=== PATIENT | male | born 1940 | race Caucasian/White ===

== ENCOUNTER 2019-04-26 08:56 | Day surgery (SDC) | payer MEDICARE, OTHER ==
[~2019-04-26 08:56] MED LIST: CEFAZOLIN SODIUM IN 0.9 % NACL 2 GM/100 ML BAG IV ONE
[2019-04-26] MEDS ORDERED: DEXAMETHASONE 4 MG/ML VIAL IVP ONE (08:57)
[2019-04-26] MEDS ORDERED: MIDAZOLAM 2 MG/2 ML VIAL IVP ONE (08:57)
[2019-04-26] MEDS ORDERED: PROPOFOL 200 MG/20 ML VIAL IVP ONE (08:57)
[2019-04-26] MEDS ORDERED: fentaNYL 100 MCG/2 ML VIAL IVP ONE (08:57)
[2019-04-26] MEDS ORDERED: KETOROLAC 30 MG/ML VIAL IVP ONE (08:57)
[2019-04-26] MEDS ORDERED: ONDANSETRON 4 MG/2 ML VIAL IVP ONE (08:57)
[2019-04-26] MEDS ORDERED: LACTATED RINGERS 1,000 ML IV ONE (09:27)
--- NOTE | 2019-04-26 09:30 | ANESTHESIA ---
Pre-Anesthesia VS, & Labs - Diagnosis left inguinal hernia - Procedure left inguinal hernia repair Vital Signs: Temp Pulse Resp BP Pulse Ox 36.8 C 62 18 138/67 H 96 04/26/19 09:06 04/26/19 09:06 04/26/19 09:06 04/26/19 09:06 04/26/19 09:06 Height 6 ft 5 in Weight (kg) 89 kg - NPO >8 hours Home Medications and Allergies Home Medications: Ambulatory Orders Omeprazole 20 mg PO DAILY 04/24/19 Sulfasalazine [Azulfidine] 500 mg PO BID 04/24/19 Omeprazole 20 mg PO DAILY 04/24/19 Sulfasalazine [Azulfidine] 500 mg PO BID 04/24/19 Allergies/Adverse Reactions: Allergies Allergy/AdvReac Type Severity Reaction Status Date / Time No Known Drug Allergies Allergy Verified 04/24/19 11:23 Anes History & Medical History - Anesthetic History Anesthesia Complications: reports: No previous complications Family history of Anesthesia Complications: Denies Family history of Malignant Hyperthermia: Denies - Medical History Cardiovascular: reports: Murmur Pulmonary: reports: None Gastrointestinal: reports: GERD, Colon polyps Urinary: reports: Benign prostate hypertrophy Musculoskeletal: reports: Osteoarthritis Endocrine/Autoimmune: reports: None Skin: reports: None - Surgical History General: Colonoscopy Urologic: Prostatic surgery Orthopedic: Other Exam General: Alert, Oriented x3, Cooperative, No acute distress Dental: Other (caps , implants) Mouth Openin Fingerbreadth Neck Mobility: Normal Mallampati classification: II Thyromental Distance: greater than 6 cm Respiratory: Lungs clear, Normal breath sounds, No respiratory distress, No accessory muscle use Cardiovascular: Normal S1, Normal S2 Plan Anesthesia Type: General Consent for Procedure(s) Verified and Reviewed: Yes Code Status: Attempt Resuscitation ASA classification: 2-Mild systemic disease Is this case an emergency?: No
[2019-04-26] MEDS ORDERED: BUPIVACAINE 0.5% PF 10 ML VIAL SUBQ ONE ×2 (10:19→10:25)
[2019-04-26] MEDS ORDERED: HYDROcod/ACETAM 5/325 MG TABLET PO PRN (11:12)
[2019-04-26] MEDS ORDERED: ONDANSETRON 4 MG/2 ML VIAL IVP PRN (11:12)
[2019-04-26] MEDS ORDERED: HYDROmorphone 0.5 MG/0.5 ML SYRINGE IVP PRN (11:12)
--- NOTE | 2019-04-26 11:19 | OPERATIVE REPORT ---
Operative Report - General Procedure Date: 04/26/19 Planned Procedure: Left inguinal herniorrhaphy Pre-Op Diagnosis: Left inguinal hernia Procedure Performed: Left indirect inguinal herniorrhaphy with mesh and excision cord lipoma Post Op Diagnosis: Left indirect inguinal hernia and cord lipoma - Procedure Note Primary Surgeon: Gt Bergeron MD Anesthesia Provider: Faustino Acevedo CRNA Anesthesia Technique: General ET tube, Local (30 mL of half percent Marcaine) IV Fluids (mL): 500 Estimated Blood Loss (mL): 5 Drain/Tube Type: Other (None) Complications: None - Other Other Information/Narrative: OPERATIVE DESCRIPTION/REPORT: After verbal and written informed consent was obtained detailing the risks of infection, bleeding requiring transfusion with its risks, nerve injury, and d eath, and after I met with the patient confirming the surgery and the site of the surgery and after initialing the site of the surgery with a surgical marker, the patient was brought to the operative suite and placed supine on the operating table. Great care was taken to avoid pressure points to prevent pressure necrosis or nerve injury. Monitoring devices were applied along with TEDs and pneumatic compressive stockings (to prevent DVT). The patient received preoperative antibiotics for surgical prophylaxis. Faustino Acevedo CRNA sedated and anesthetized the patient for the entire procedure. The patient was prepped and draped in the usual sterile manner. With the patient draped my initials were clearly visible. A "time in" then confirmed that the patient was identified with 3 identifiers (name, date and medical record number), the history and physical was in the chart, the signed consent confirming the procedure was in the chart, the patient was in the correct position, the aforementioned prophylactic measures were in place or given, we had the correct personnel and equipment to complete the procedure and that anesthesia, surgery and nursing were given an opportunity to express any concerns. With the agreement of everyone in the room, we proceeded with the operation. A standard inguinal incision was made and dissection was carried down to the external oblique aponeurosis using a combination of Metzenbaum scissors and Bovie electrocautery. The external oblique aponeurosis was cleared of overlying adherent tissue, and the external ring was delineated. The external oblique was the incised with a scalpel and this incision was carried out to the external ring using Metzenbaum scissors. Having exposed the inguinal canal, the cord structures were from the canal using blunt dissection, and a Lui drain was placed around the cord structures at the level of the pubic tubercle. This Lui drain was then used to retract the cord structures as needed. Adherent cremasteric muscle was dissected free from the cord using Bovie electrocautery. The cord was then explored using a combination of sharp and blunt dissection, and the sac was found anteromedially to the cord structures. Dissection along the cord structures found a lipoma that was dissected back to the internal ring, ligated with a 3-0 Vicryl, transected, the stump cauterized and allowed to retract back into the abdomen. The sac was dissected free from the cord structures using a combination of blunt dissection and Bovie electrocautery. Once preperitoneal fat was encountered, the dissection stopped and the sac was high ligated with a 2-0 PDS, transected, the stump cauterized and allowed to retract back into the abdominal cavity and a medium Covidien plug (Ref# [id number], Lot# [id number], use date 2023-12-17) inserted into the internal ring. The plug was secured to the internal ring by interrupted 2-0 PDS sutures. The Bard Perfix enlay patch was then placed on the floor of the inguinal canal and secured in place using interrupted 0 PDS sutures to the conjoined tendon superiorly, pubic tubercle medially, and shelving edge inferiorly. By reinforcing the floor with the enlay patch, a new internal ring was thus formed. The Grover drain was removed. The wound was then irrigated using sterile saline, and hemostasis was obtained using Bovie electrocautery. The incision in the external oblique was approximated using a 3-0 Vicryl in a running fashion, thus reforming the external ring. The fascia and skin was then injected with the 1/2% marcaine for tank terminal gauger pain control. The skin incision was approximated with 4-0 Monocryl in a subcuticular fashion. The skin was prepped with benzoin and steristrips were applied. At this point a time out was performed that co nfirmed that all the counts were correct, the procedure that was performed, the blood loss, the IV fluids administered, and the patients condition. A dressing was then applied. Gentle downward traction ensured that the testes were well seated in the scrotum. Having tolerated the procedure well, the patient was taken to short stay in good and stable condition. Dragon disclaimer: This document was created in part using voice recognition technology. Because of the inherent limitations of the system ([employer]'s Dragon Dictate user manual states that the licensee understands that speech recognition is a statistical process and that recognition errors are inherent in the process), occasional same sounding word substitutions and grammatical errors do occur and persist despite proofreading. Please read this document for context.
[2019-04-26] MEDS ORDERED: ACETAMINOPHEN 1,000 MG/100 ML 100 ML IV ONE (11:45)
[2019-04-26] MEDS ORDERED: HYDROcod/ACETAM 5/325 MG TABLET ONE (12:13)
[2019-04-26 13:48] VITALS: BP 114/70
== END 2019-04-26 08:57 | disposition home or self-care (01) ==
LOC: SDS 08:56
PROVIDERS: ATTEND Surgery
PROC: 0VBG0ZZ Excision of Left Spermatic Cord, Open Approach (ICD-10-PCS; 2019-04-26)
PROC: 0YU60JZ Supplement Left Inguinal Region with Synthetic Substitute, Open Approach (ICD-10-PCS; principal; 2019-04-26 10:30)
DX: K40.90 Unilateral inguinal hernia, without obstruction or gangrene, not specified as recurrent (principal); K21.9 Gastro-esophageal reflux disease without esophagitis; N40.0 Benign prostatic hyperplasia without lower urinary tract symptoms; R01.1 Cardiac murmur, unspecified; R73.9 Hyperglycemia, unspecified; M19.90 Unspecified osteoarthritis, unspecified site; K57.90 Diverticulosis of intestine, part unspecified, without perforation or abscess without bleeding; Z86.010 Personal history of colon polyps; Z85.51 Personal history of malignant neoplasm of bladder
CPT/HCPCS: 49505; A9270; C1781; J0131; J0690; J7120

== ENCOUNTER 2022-05-18 15:43 | Outpatient (CLI) | payer MEDICARE, OTHER ==
[2022-05-18 16:33] LABS: BASOPHILS % (AUTO) 0.6 %; EOSINOPHILS # (AUTO) 0.3 10^3/uL (0.0-0.7); EOSINOPHILS % (AUTO) 5.2 %; HCT - HEMATOCRIT 39.6 % (42.0-52.0); HGB - HEMOGLOBIN 13.2 g/dL (14.0-18.0); LYMPHOCYTES # (AUTO) 1.5 10^3/uL (1.5-3.5); LYMPHOCYTES % (AUTO) 28.9 %; MEAN CORPUSCULAR HGB CONC 33.3 g/dL (32.0-36.0); MEAN PLATELET VOLUME 10.3 fL (7.4-11.4); MONOCYTES # (AUTO) 0.8 10^3/uL (0.0-1.0); MONOCYTES % (AUTO) 16.5 %; NEUTROPHILS # (AUTO) 2.4 10^3/uL (1.5-6.6); NEUTROPHILS % (AUTO) 48.4 %; PLT - PLATELET COUNT 179 10^3/uL (130-450)
[2022-05-18 16:50] LABS: ALBUMIN/GLOBULIN RATIO 1.5 (1.0-2.2); ALKALINE PHOSPHATASE 42 IU/L (42-121); ALT ALANINE AMINOTRANSFERASE 14 IU/L (10-60); AST ASPARTATE AMINOTRANSFERASE 18 IU/L (10-42); BILIRUBIN,TOTAL 0.5 mg/dL (0.2-1.0); BUN - BLOOD UREA NITROGEN 22 mg/dL (6-20); CALCIUM 9.2 mg/dL (8.5-10.3); CARBON DIOXIDE - CO2 28 mmol/L (21-32); CHLORIDE 103 mmol/L (101-111); CREATININE 0.7 mg/dL (0.6-1.2); GFR - MDRD 108 (>89); GLUCOSE 98 mg/dL (70-100); POTASSIUM 3.9 mmol/L (3.5-5.0); SODIUM 138 mmol/L (135-145); TOTAL PROTEIN 6.7 g/dL (6.7-8.2)
[2022-05-18 16:52] LABS: CRP - C-REACTIVE PROTEIN < 1.0 mg/dL (0-1.0)
[2022-05-18 16:58] LABS: THYROID STIMULATING HORMONE 3.2 uIU/mL (0.34-5.60)
== END 2022-05-18 23:59 | disposition home or self-care (01) ==
LOC: LAB.R 15:43
PROVIDERS: ATTEND Internal Medicine
DX: M06.9 Rheumatoid arthritis, unspecified (principal); R61 Generalized hyperhidrosis; R23.2 Flushing; Z79.899 Other long term (current) drug therapy
CPT/HCPCS: 80053; 84403; 84443; 85025; 85651; 86140

== ENCOUNTER 2022-06-14 17:13 | Outpatient (CLI) | payer MEDICARE, OTHER ==
--- NOTE | 2022-06-14 17:53 | XRAY Report ---
PROCEDURE: Chest 2 View X-Ray INDICATIONS: WHEEZING TECHNIQUE: 2 view(s) of the chest. COMPARISON: None. FINDINGS: Surgical changes and devices: None. Lungs and pleura: No pleural effusions or pneumothorax. Lungs are mildly hyperexpanded and clear. Lucencies under the left hemidiaphragm most likely represent bowel gas within the colon. Mediastinum: Mediastinal contours are normal. Heart size is normal. Bones and chest wall: No suspicious bony abnormalities. Soft tissues appear unremarkable. Mild deg enerative changes are seen in the spine. IMPRESSION: No acute cardiopulmonary abnormality. Hyperexpanded lungs can be seen in the setting of COPD. Reviewed by: Jayden Mejia MD on 06/14/2022 5:52 PM PDT Approved by: Jayden Mejia MD on 06/14/2022 5:52 PM PDT Station ID: [id number]
== END 2022-06-14 17:14 | disposition home or self-care (01) ==
LOC: DI 17:13
PROVIDERS: ATTEND Internal Medicine
DX: R07.9 Chest pain, unspecified (principal); R06.2 Wheezing

== ENCOUNTER 2023-09-01 14:54 | Emergency (ER) | payer MEDICARE, OTHER ==
[2023-09-01 15:07] VITALS: BP 152/89; O2SAT 97
[2023-09-01] MEDS ORDERED: SODIUM CHLORIDE 0.9% 500 ML IV STA (15:29)
--- NOTE | 2023-09-01 15:30 | ED Physician Documentation ---
PD HPI FOCAL NEURO - Stated complaint Stated Complaint: FUZZY HEAD - Chief complaint Chief Complaint: Neuro - History obtained from History obtained from: Patient - Additional information Additional information: Tera Luo is an 82-year-old gentleman with what sounds like known and worsening aortic stenosis. He had an echo earlier this month and is being scheduled for an angiogram in preparation for either an open or TAVR approach valve replacement. Every morning he feels orthostatic and today that sensation has lasted longer than usual and is persistent. He did work a little heavier yesterday than usual because there was a tree down across his driveway and he had to get it out of the driveway so he could get into his house. He has some pedal edema but it is no different than usual. He just feels fuzzy and his thinking is slow. He denies chest pain. 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 PD PAST MEDICAL HISTORY - Past Medical History Past Medical History: Yes Cardiovascular: Murmur Respiratory: None Endocrine/Autoimmune: None GI: GERD, Colon polyps : Benign prostate hypertrophy HEENT: Chronic vision loss Psych: Anxiety Musculoskeletal: Osteoarthritis Derm: None - Past Surgical History Past Surgical History: Yes General: Colonoscopy Ortho: Other - Present Medications Home Medications: Ambulatory Orders Medication Instructions Recorded Confirmed Omeprazole 20 mg PO DAILY 04/24/19 09/01/23 Sulfasalazine [Azulfidine] 500 mg PO BID 04/24/19 09/01/23 Albuterol Sulf [Ventolin Hfa 1 puffs INH PRN PRN 09/01/23 09/01/23 Inhaler] Atorvastatin [Lipitor] 20 mg PO QPM 09/01/23 09/01/23 Rivaroxaban [Xarelto] 20 mg PO DAILY 09/01/23 09/01/23 - Allergies Allergies/Adverse Reactions: Allergies Allergy/AdvReac Type Severity Reaction Status Date / Time potato AdvReac Cramps Verified 04/26/19 09:27 - Social History Does the pt smoke?: No Smoking Status: Never smoker PD ED PE NORMAL - Vitals Vital signs reviewed: Yes - General General: Alert and oriented X 3, No acute distress - HEENT HEENT: PERRL, Dentition benign - Neck Neck: Supple, no meningeal sign, No bony TTP - Cardiac Cardiac: RRR - Respiratory Respiratory: No respiratory distress, Clear bilaterally - Abdomen Abdomen: Non tender - Derm Derm: Normal color, Warm and dry - Extremities Extremities: Other (Trace pitting pedal edema) - Neuro Neuro: Alert and oriented X 3, No motor deficit, No sensory deficit, Normal speech, Other (NIH stroke scale is 0 on initial examination at approximately 3:20 PM.) Eye Opening: Spontaneous Motor: Obeys Commands Verbal: Oriented GCS Score: 15 Results - Vitals Vitals: Vital Signs - 24 hr 09/01/23 09/01/23 15:02 15:04 Temperature 36.7 C 36.7 C Heart Rate 90 90 Respiratory 20 20 Rate Blood Pressure 152/89 H 152/89 H O2 Saturation 97 97 Oxygen O2 Source Room air - EKG (time done) 1539 EKG releavant findings:: EKG personally interpreted by author of this note. Relevant findings are: Rate: Rate (enter#) (75) Rhythm: NSR (But very frequent PACs) [place]: Normal Intervals: Normal OK QRS: Normal Ischemia: Q waves (V1 only), Non specific changes. No: ST elevation c/w ischemia Computer interpretation: Agree with computer - Labs Labs: Laboratory Tests 09/01/23 09/01/23 15:39 15:39 WBC 4.2 L RBC 4.06 L Hgb 12.9 L Hct 39.9 L MCV 98.3 H MCH 31.8 H MCHC 32.3 RDW 13.2 Plt Count 149 MPV 10.0 Neut # (Auto) 2.2 Lymph # (Auto) 1.1 L [place] # (Auto) 0.6 Eos # (Auto) 0.2 Baso # (Auto) 0.0 Absolute Nucleated RBC 0.00 Nucleated RBC % 0.0 Sodium 139 Potassium 3.7 Chloride 105 Carbon Dioxide 28 Anion Gap 6.0 BUN 20 Creatinine 0.9 Estimated GFR (MDRD) 81 L Glucose 130 H Calcium 9.6 Total Bilirubin 0.7 AST 14 ALT 9 L Alkaline Phosphatase 56 Total Protein 6.8 Albumin 4.2 Globulin 2.6 Albumin/Globulin Ratio 1.6 PD Medical Decision Making - ED course ED course: 82-year-old gentleman who is being prepped for aortic valve replacement presents with worse than normal lightheadedness today in the setting of extra activity yesterday so presume volume depletion from the activity causing orthostasis. Workup in the emergency department consisted of a CBC which showed mild anemia but relatively unchanged from prior value last year. CMP normal. EKG unremarkable. He received 500 mL of IV fluids. His EKG did show some many PACs there was almost no A-fib although he did have some sinus beats. He states that he has been checking his heart rhythm over the last few months and it has been like that pretty consistently. He is also currently wearing a Zio patch. He felt modestly better after the IV fluids and discussed with him that he would probably continue to have progressive symptomatology until his aortic valve is replaced but we discussed close follow-up with his tool and die machinist and signs and symptoms to return for especially any chest pain or syncope. Departure - Departure Disposition: 01 Home, Self Care Clinical Impression: Dizziness Aortic stenosis Qualifiers: Cardiac valve disease etiology: etiology unspecified Qualified Code(s): I35.0 - Nonrheumatic aortic (valve) stenosis Arrhythmia Qualifiers: Arrhythmia type: unspecified cardiac arrhythmia Qualified Code(s): I49.9 - Cardiac arrhythmia, unspecified Condition: Good Record reviewed to determine appropriate education?: Yes Instructions: ED Dizziness [facility] Comments: As discussed, I suspect your dizziness today is multifactorial between your aortic stenosis, mild dehydration, and you are having a lot of premature atrial contractions, not quite, but almost to the point of having atrial fibrillation. Return in the Zio patch as scheduled and follow-up with your tool and die machinist as scheduled. Return if worse, and as discussed, especially if you develop any chest pain or passout. Forms: PCP List
[2023-09-01 15:47] LABS: BASOPHILS % (AUTO) 0.7 %; EOSINOPHILS # (AUTO) 0.2 10^3/uL (0.0-0.7); EOSINOPHILS % (AUTO) 5.7 %; HCT - HEMATOCRIT 39.9 % (42.0-52.0); HGB - HEMOGLOBIN 12.9 g/dL (14.0-18.0); LYMPHOCYTES # (AUTO) 1.1 10^3/uL (1.5-3.5); LYMPHOCYTES % (AUTO) 26.1 %; MEAN CORPUSCULAR HEMOGLOBIN 31.8 pg (27.0-31.0); MEAN CORPUSCULAR HGB CONC 32.3 g/dL (32.0-36.0); MEAN CORPUSCULAR VOLUME 98.3 fL (80.0-94.0); MONOCYTES # (AUTO) 0.6 10^3/uL (0.0-1.0); NEUTROPHILS # (AUTO) 2.2 10^3/uL (1.5-6.6); NEUTROPHILS % (AUTO) 52.3 %; PLT - PLATELET COUNT 149 10^3/uL (130-450); RED BLOOD COUNT 4.06 10^6/uL (4.70-6.10); RED CELL DISTRIBUTION WIDTH 13.2 % (12.0-15.0); WHITE BLOOD COUNT 4.2 x10^3/uL (4.8-10.8)
[2023-09-01 16:11] LABS: ALBUMIN 4.2 g/dL (3.2-5.5); ALBUMIN/GLOBULIN RATIO 1.6 (1.0-2.2); BILIRUBIN,TOTAL 0.7 mg/dL (0.2-1.0); CALCIUM 9.6 mg/dL (8.5-10.3); CREATININE 0.9 mg/dL (0.6-1.3); POTASSIUM 3.7 mmol/L (3.5-4.5); TOTAL PROTEIN 6.8 g/dL (6.4-8.9)
--- NOTE | 2023-09-01 18:08 | XRAY Report ---
PROCEDURE: Chest 1 View X-Ray INDICATIONS: dyspnea TECHNIQUE: One view of the chest was acquired. COMPARISON: CXR 06/14/2022. FINDINGS: Surgical changes and devices: Device overlying the left chest. Lungs and pleura: No pleural effusions or pneumothorax. Lungs are clear. Mediastinum: Mediastinal contours appear normal. Heart size is normal. Bones and chest wall: No suspicious bony lesions. Overlying soft tissues appear unremarkable. IMPRESSION: No acute cardiopulmonary process. Reviewed by: Danny Garcia MD on 09/01/2023 6:06 PM PST Approved by: Danny Garcia MD on 09/01/2023 6:06 PM PST Station ID: [id number]
== END 2023-09-01 17:02 | disposition home or self-care (01) ==
LOC: ED 14:54
DX: E86.0 Dehydration (principal); I35.0 Nonrheumatic aortic (valve) stenosis; I49.1 Atrial premature depolarization
CPT/HCPCS: 36415; 80053; 85025; 93005; 96360; 99284